=== PATIENT | male | born 1970 | race Caucasian/White ===

== ENCOUNTER 2017-04-18 18:48 | Emergency (ER) | payer BC, OTHER ==
[~2017-04-18 18:48] MED LIST: ALBU8.5H12 IH; ASC500 PO; CEP500 PO; CLON1 PO; CYC10 PO; DIA5 PO; DOC100 PO; DOCU-416 PO; ESCI20TA38 PO; HYDR2TAB42 PO; IBU800 PO; IBUP600T22 PO; KET10 PO; LIDO700A25 TP; LIS20 PO; LISI-368 PO; LOR10 PO; LOR5 PO; LORA10TA2 PO; MON10 PO; MULT1CAP41 PO; ONDA4TAB97 PO; ONDA8TAB91 PO; OXY10 PO; OXYB10TA21 PO; OXYC-717 PO; OXYC-856 PO; OXYC-865 PO; OXYC-870 PO; PER PO; PRO25 PO; PROM25SU9 RC; PYRA500T32 PO; TAMS0.4C25 PO
[2017-04-18] MEDS ORDERED: FLUORESCEIN SOD 1 MG 1 EA STRP OD ONE (19:05)
[2017-04-18] MEDS ORDERED: PROPARACAINE 0.5% OP 15ML BTL OD ONE (19:05)
[2017-04-18] MEDS ORDERED: TOBRAMYCIN 0.3% OP SOLN 5 ML OS ONE (19:45)
--- NOTE | 2017-04-18 19:45 | ER Report ---
History and Physical Time Seen By MD: 19:00 Hx. of Stated Complaint: gravel flew up in eye tuesday morning, pain and irritation and could not get it out after flushing HPI/ROS CHIEF COMPLAINT: Eye foreign body HISTORY OF PRESENT ILLNESS: This is a 46-year-old male who presents to the emergency department for a foreign body of the left eye. Patient states that about 2 days ago while he was at work a piece of gravel bounced off the road and ended up hitting him in the left eye. Patient states since then he's had some discomfort to the left eye he states "he can see a spot". Patient denies any visual changes, nausea, vomiting, diarrhea, aches or chills. REVIEW OF SYSTEMS: Respiratory: No cough, no dyspnea. Cardiovascular: No chest pain, no palpitations. Gastrointestinal: No vomiting, no abdominal pain. Musculoskeletal: No back pain. Eyes: As above. Allergies: Coded Allergies: hydrocodone (Verified Allergy, Severe, TOUBLE BREATHING, HIVES, 08/10/15) milk (Verified Allergy, Unknown, 08/10/15) Uncoded Allergies: POLLEN EXTRACTS (Allergy, Unknown, 05/12/11) Home Meds Reported Medications Lisinopril (Lisinopril) 20 Mg Tablet, 20 MG PO QAM, 0 Refills 05/02/09 Clonidine Hcl (Catapres) 0.1 Mg Tab, 0.1 MG PO QAM, #20 0 Refills 05/02/09 Past Medical/Surgical History Patient has a past medical and surgical history of anxiety, migraines, hypertension, hypercholesterolemia, asthma, GERD, right ear to her stent, left arm fracture, back pain, C5-6 fracture with titanium rods, right knee viscous repair. Reviewed Nurses Notes: Yes Hx Smoking: No Smoking Status: Former Smoker Exposure to Second Hand Smoke?: No Hx Substance Use Disorder: Yes Hx Alcohol Use: No Constitutional Vital Sign - Last 24 Hours 04/18/17 04/18/17 18:57 20:05 Temp 98.7 99.0 Pulse 84 90 Resp 18 18 B/P (MAP) 151/92 151/102 (118) Pulse Ox 93 92 O2 Delivery Room Air Room Air Physical Exam General Appearance: The patient is alert, has no immediate need for airway protection and no current signs of toxicity. Eyes: Pupils equal and round no injection. There is a foreign body to the left eye cornea. Mild injection to the left sclera. Respiratory: Chest is non tender, lungs are clear to auscultation. Cardiac: regular rate and rhythm, no murmurs, clicks or rubs. Gastrointestinal: Abdomen is soft and non tender, no masses, bowel sounds normal. Musculoskeletal: Neck: Neck is supple and non tender. Extremities have full range of motion and are non tender. Skin: No rashes or lesions. DIFFERENTIAL DIAGNOSIS: After history and physical exam differential diagnosis was considered for foreign body to the eye. Medical Decision Making ED Course/Re-evaluation ED Course The patient was admitted to room area a history of physical obtained. Differential diagnoses were considered. A fluorescence exam of the left eye did show a mild corneal abrasion as well as a foreign body to the left eye cornea. I did try to remove the foreign body using a Q-tip which was on successful. I did end up using an eye bur which removed the majority of the foreign body however there was a little bit of a rust ring remaining. Dr. Schmitz evaluate patient's eye as noted below. We felt it would be better to have the patient follow-up with ophthalmology and saturation on tobramycin eye drops. Patient's visual acuity was 20/50 bilateral. The patient was instructed to follow-up with ophthalmology this week. Patient was also encouraged to recheck return to the emergency department for any other concerns or worsening symptoms. Patient was in agreement with this plan of care and discharged home. Patient had no other questions or concerns at this time. Procedure: Foreign body removal from eye cornea: Anesthesia: Topical After verbal consent from the patient, an embedded metal foreign body was removed from left eye cornea. The foreign body was removed manually using an eye pilar using direct visualization. Following removal there was a small rust ring. There were no complications and the patient tolerated the procedure well. The procedure was performed by myself. I did have Dr. Schmitz evaluate the patient and we agreed that the rust ring would be better followed up by ophthalmology. Decision to Disposition Date: Apr 18, 2017 Decision to Disposition Time: 19:49 Depart Departure Latest Vital Signs Vital Signs Date Time Temp Pulse Resp B/P (MAP) Pulse Ox O2 Delivery O2 Flow Rate FiO2 04/18/17 20:05 99.0 90 18 151/102 (118) 92 Room Air Impression: Primary Impression: Foreign body of left eye Condition: Improved Disposition: HOME OR SELF-CARE Referrals: BECKY MEJÍA MD Patient Instructions: Eye Foreign Body (ED) Additional Instructions: Drink plenty of water. Get plenty of rest. Use the antibiotic eye drops 4 times a day for 7 days. Follow up with Dr. Tdaeo, opthamology. Return to the ED for any other concerns or worsening symptoms. Problem Qualifiers Primary Impression: Foreign body of left eye Encounter type: initial encounter Qualified Codes: T15.92XA - Foreign body on external eye, part unspecified, left eye, initial encounter KASANDRA SMITH CERTIFIED PERSONAL FINANCE COUNSELOR-BC Apr 18, 2017 19:45
[2017-04-18 20:05] VITALS: BP 151/102
== END 2017-04-18 20:09 | disposition home or self-care (01) ==
LOC: ER 19:05
DX: T15.02XA Foreign body in cornea, left eye, initial encounter (principal)
CPT/HCPCS: 99282